=== PATIENT | female | born 1975 | race Caucasian/White ===

== ENCOUNTER 2016-06-26 22:10 | Emergency (ER) | payer SELFPAY ==
[~2016-06-26 22:10] MED LIST: BACTRIM DS TABL1 TAB PO; IBUPROFEN PO; IRON1 TA1; KETOPROFEN PO; ORTHO TRI-7 DAYS X PO; PRENATAL1 TA1; VICODIN 5/500 T1 TAB PO
== END 2016-06-26 22:15 | disposition home or self-care (01) ==
LOC: CFTX 22:10
DX: K04.7 Periapical abscess without sinus (principal); F17.210 Nicotine dependence, cigarettes, uncomplicated
CPT/HCPCS: 99282

== ENCOUNTER 2016-10-18 11:22 | Emergency (ER) | payer SELFPAY ==
[~2016-10-18] VITALS: Ht 157.5 cm; Wt 63.5 kg
--- NOTE | ~2016-10-18 | EKG ---
PATIENT: OZZY WHITNEY UNIT #: [id number] Ventricular Rate: 73 BPM Atrial Rate: 73 BPM P-R Interval: 138 ms QRS Duration: 76 ms Q-T Interval: 398 ms QTC Calculation(Bezet): 438 ms P Lamar: 45 degrees Calculated R Lamar: 19 degrees Calculated T Lamar: 5 degrees Diagnosis Line: Normal sinus rhythm Diagnosis Line: Normal ECG Diagnosis Line: No previous ECGs available Diagnosis Line: Confirmed by DESTINEY GRANADO MD ([id number]) on 10/18/2016 Diagnosis Line: 7:47:01 PM INTERPRETING MD: VANNESA NAVARRO
--- NOTE | ~2016-10-18 | CR72 ---
[facility] A Service of [facility] RADIOLOGY TEXT RESULTS PATIENT: OZZY WHITNEY LOCATION: [facility] : 73 UNIT #: [id number] AGE: [address]: Thong Hancock DO SEX: F ORDER DR: [id number] [facility] [address] [place], [place] [address] [id number] E MR#: [id number] Acc #: [id number] NAME: OZZY WHITNEY : 1975 SEX: F STUDY DATE/TIME: 10/18/2016 14:22 UNIT: [facility] ROOM: STUDY DESCRIPTION: CR Chest Single View Portable Attending Physician: Thong Hancock D.O. Ordering Physician: Thong Hancock D.O. Primary Care Physician: [facility], MEDICAL IMAGING REPORT This report is preliminary unless electronic signature is present EXAM Portable chest, 10/18/2016. HISTORY Short of air and weakness for 1 day. COMPARISON 09/01/2015 FINDINGS A portable view of the chest was obtained. The heart size and vascularity are normal, the lungs are clear, and the bones are unremarkable. IMPRESSION No active disease. Dictated by... Carlos Manuel Kirkland M.D. THIS IS AN ELECTRONICALLY VERIFIED REPORT Carlos Manuel Kirkland M.D. at 10/18/2016 4:54 PM Enrique TD: 10/18/2016 16:07 JOB #: [id number] MEDICAL IMAGING REPORT Page 1 of 1 COPY
--- NOTE | ~2016-10-18 | CT4 ---
[facility] A Service of [facility] RADIOLOGY TEXT RESULTS PATIENT: OZZY WHITNEY LOCATION: [facility] : 73 UNIT #: [id number] AGE: [address]: Thong Hancock DO SEX: F ORDER DR: [id number] [facility] [address] [place], [place] [address] [id number] E MR#: [id number] Acc #: [id number] NAME: OZZY WHITNEY : 1975 SEX: F STUDY DATE/TIME: 10/18/2016 14:48 UNIT: [facility] ROOM: STUDY DESCRIPTION: CT Abd and Pelv Wo Cont Attending Physician: Thong Hancock D.O. Ordering Physician: Thong Hancock D.O. Primary Care Physician: [facility] IMAGING REPORT This report is preliminary unless electronic signature is present EXAM CT abdomen and pelvis without contrast HISTORY Bilateral flank pain for 2 weeks. Vomiting. TECHNIQUE This CT exam was performed with one or more of the following radiation dose reduction techniques: automatic exposure control, adjustment of mA and/or kV according to patient size, and iterative reconstruction. FINDINGS CT abdomen and pelvis was performed without contrast. CT ABDOMEN: The liver, gallbladder, spleen, pancreas, kidneys, and adrenal glands are normal. No renal calculi. No hydronephrosis. No bowel dilatation. No ascites or inflammatory stranding. CT PELVIS: No pelvic mass or fluid collection. No inflammatory changes. Normal appendix. IMPRESSION 1. No acute findings. 2. No urinary calculi or obstruction. 3. Normal appendix. Dictated by... Baljinder Glez M.D. THIS IS AN ELECTRONICALLY VERIFIED REPORT [facility] A Service [facility] RADIOLOGY TEXT RESULTS PATIENT: OZZY WHITNEY LOCATION: [facility] : 73 UNIT #: [id number] AGE: [address]: Thong Hancock DO SEX: F ORDER DR: Baljinder Glez M.D. at 10/19/2016 4:28 PM Heladio TD: 10/18/2016 16:23 JOB #: [id number] MEDICAL IMAGING REPORT Page 1 of 1 COPY
[2016-10-18 11:59] LABS: BASOPHIL% 0.3 % (0-2.5); EOSINOPHIL# 0.2 X10e3 (0-0.7); EOSINOPHIL% 2.9 % (0.0-7.0); HEMATOCRIT 38.3 % (35.0-45.0); HEMOGLOBIN 13.3 gm/dL (12.0-16.0); LYMPHOCYTE% 28.7 % (17.0-45.0); MEAN CELL VOLUME 90.9 FL (83-96); MEAN CORPUSCULAR HEMOGLOBIN 31.5 PG (28-34); MEAN CORPUSCULAR HGB CONC 34.6 g/dL (30-36); MEAN PLATELET VOLUME 10.1 FL (6.5-11.5); MONOCYTE# 0.3 X10e3 (0-1.0); MONOCYTE% 4.8 % (3.0-12.0); NEUTROPHIL# 4.4 X10e3 (1.5-7.1); NEUTROPHIL% 63.3 % (40-75); PLATELET COUNT 140 X10e3 (140-420); RED BLOOD COUNT 4.21 X10e (3.90-5.30); RED CELL DISTRIBUTION WIDTH 13.3 % (11.0-15.5)
[2016-10-18 12:00] LABS: DIFF IND NO
[2016-10-18 12:16] LABS: POC - CKMB <1.0 ng/mL (0.0-7.9); POC - TROPONIN <0.05 ng/mL (<=0.05)
[2016-10-18 12:22] LABS: ALBUMIN SERUM 3.8 g/dL (3.5-5.0); BILIRUBIN, DIRECT 0.1 mg/dL (0.0-0.2); BILIRUBIN,INDIRECT 0.3 mg/dL (0.0-0.9); BILIRUBIN,TOTAL 0.4 mg/dL (0.2-2.0); BUN/CREATININE RATIO 22.5; CALCIUM SERUM 8.6 mg/dL (8.4-10.2); CREATININE SERUM 0.8 mg/dL (0.6-1.4); GLOM FILT RATE Estimated 91.7 mL/min (>60); POTASSIUM 3.2 mmol/L (3.5-5.1); PROTEIN TOTAL SERUM 6.5 g/dL (6.0-8.3)
[2016-10-18 12:51] LABS: URINE SOURCE CLEAN CATCH
[2016-10-18 13:03] LABS: URINE APPEARANCE CLEAR; URINE BLOOD 4+ (NEG); URINE COLOR YELLOW; URINE GLUCOSE NORM (NORM); URINE KETONE NEG (NEG); URINE LEUKOCYTE ESTERASE NEG (NEG); URINE NITRATE NEG (NEG); URINE PROTEIN NEG (NEG); URINE SPECIFIC GRAVITY 1.025 (1.003-1.035); URINE UROBILINOGEN NORM (NORM)
[2016-10-18 13:07] LABS: URINE BILIRUBIN NEG (NEG)
[2016-10-18 13:08] LABS: CULTURE INDICATED? NO
[2016-10-18 13:11] LABS: AMPHETAMINE NEG (NEG); BARBITURATES NEG (NEG); BENZODIAZEPINES NEG (NEG); COCAINE NEG (NEG); MARIJUANA NEG (NEG); OPIATES NEG (NEG); TRICYCLIC ANTIDEPRESSANTS NEG (NEG); U METHADONE NEG (NEG)
== END 2016-10-18 15:58 | disposition home or self-care (01) ==
LOC: CED 11:22
PROVIDERS: Emergency Medicine
DX: R11.2 Nausea with vomiting, unspecified (principal); R31.9 Hematuria, unspecified; R53.1 Weakness; F17.200 Nicotine dependence, unspecified, uncomplicated
CPT/HCPCS: 36415; 71010; 74176; 80048; 80076; 80307; 81003; 82553; 82947; 83690; 84484; 85025; 85379; 93005; 96361; 96374; 96375; 99285; J1885; J2405